=== PATIENT | male | born 1985 | race Caucasian/White ===

== ENCOUNTER 2021-05-08 07:00 | Outpatient (CLI) | payer SELFPAY | END 2021-05-08 23:59 | disposition home or self-care (01) | LOC: COV 07:00 | PROVIDERS: ATTEND Family Medicine | DX: U07.1 COVID-19 (principal) ==

== ENCOUNTER 2022-11-26 13:22 | Emergency (ER) | payer BC, OTHER ==
[2022-11-26 13:36] VITALS: BP 116/94
--- NOTE | 2022-11-26 14:09 | ED Physician Documentation ---
PD HPI WOUND RECHECK - Stated complaint Stated Complaint: R ANKLE REDNESS - Chief complaint Chief Complaint: Wound - Histroy obtained from History obtained from: Patient - Additional information Additional information: 37-year-old gentleman who is generally healthy has a remote history of varicose vein stripping of the right leg. Over the last month or so he has developed an itchy painful rash on the right leg that has been not responsive to an [id number] antifungal. PD PAST MEDICAL HISTORY - Present Medications Home Medications: Ambulatory Orders Medication Instructions Recorded Confirmed FLUoxetine [PROzac] 11/26/22 Fluoxetine HCl [Prozac] 20 mg PO DAILY 11/26/22 11/26/22 Mupirocin 2% Oint [Bactroban 2% 1 applic TOP BID #22 gm 11/26/22 Oint] cephALEXin [Keflex] 500 mg PO Q6H #28 cap 11/26/22 hydrOXYzine HCL [Hydroxyzine HCl] 25 mg PO HS 11/26/22 11/26/22 - Allergies Allergies/Adverse Reactions: Allergies Allergy/AdvReac Type Severity Reaction Status Date / Time No Known Drug Allergies Allergy Verified 11/26/22 13:36 PD ED PE NORMAL - Vitals Vital signs reviewed: Yes - General General: Alert and oriented X 3, No acute distress - Extremities Extremities: Other (There is an inflamed area on the right medial calf with small areas of skin breakdown and may be just a touch purulence.) - Neuro Neuro: Alert and oriented X 3, Normal speech Results - Vitals Vitals: Vital Signs - 24 hr 11/26/22 13:33 Temperature 36.1 C L Heart Rate 78 Respiratory 16 Rate Blood Pressure 116/94 H O2 Saturation 99 Oxygen O2 Source Room air PD Medical Decision Making - ED course ED course: He has a nonspecific rash that looks more like a cellulitis than anything else with just a bit of purulent drainage. We will trial some antibiotics pending dermatology follow-up. Departure - Departure Disposition: 01 Home, Self Care Clinical Impression: Cellulitis Qualifiers: Site of cellulitis: extremity Site of cellulitis of extremity: lower extremity Laterality: right Qualified Code(s): L03.115 - Cellulitis of right lower limb Instructions: Cellulitis Dc Prescriptions: Mupirocin 2% Oint [Bactroban 2% Oint] 1 applic TOP BID #22 gm cephALEXin [Keflex] 500 mg PO Q6H #28 cap Comments: We are performing a wound culture, the results should be done in 48-72 hours. If antibiotic change is necessary we will call you. Return if worse in the meantime, especially if you develop increased pain, fevers, cannot keep down the medication. If you are not improving is reasonable to follow-up with a coroner. 1 op tion would be: Suzette Alejo [address] [facility] [phone]
== END 2022-11-26 14:13 | disposition home or self-care (01) ==
LOC: ED 13:22
DX: L03.115 Cellulitis of right lower limb (principal)
CPT/HCPCS: 87070; 87205; 99283